=== PATIENT | male | born 1960 | race Caucasian/White ===

== ENCOUNTER 2019-11-29 14:11 | Observation (INO) | payer OTHER ==
[~2019-11-29] VITALS: Ht 172.7 cm; Wt 98.8 kg
[~2019-11-29 14:11] MED LIST: NO MEDS PER PT
[2019-11-29] MEDS ORDERED: ASPIRIN 81 MG TABLET CHEW ONE (14:37)
--- NOTE | 2019-11-29 14:46 | NUR ---
PT CAME IN CO OF CP THAT STARTED ABOUT AN HOUR AGO WHEN HE WAS WORKING ON HIS CAR. PT DESCRIBED THE PAIN "IT FELT LIKE SOMEONE WAS STRANGLING MY INSIDES AND I COULDNT BREATH". EKG COMPLETE. LABS DRAWN. X RAY TAKEN. PT CONNECTED TO MONITORING EQUIPMENT
[2019-11-29 14:48] LABS: BASOPHILS # (AUTO) 0.01 x10^3/uL (0-0.1); BASOPHILS % (AUTO) 0 % (0-1); EOSINOPHILS # (AUTO) 0.08 x10^3/uL (0-0.4); EOSINOPHILS % (AUTO) 1 % (1-7); LYMPHOCYTES # (AUTO) 1.19 x10^3/uL (1-3.4); LYMPHOCYTES % (AUTO) 18 % (22-44); MD NO; MEAN CORPUSCULAR HEMOGLOBIN 31.3 pg (27.5-34.5); MEAN CORPUSCULAR HGB CONC 33.3 g/dL (33.2-36.2); MEAN CORPUSCULAR VOLUME 93.8 fL (81-97); MEAN PLATELET VOLUME 8.6 fL (7.4-10.4); MONOCYTES # (AUTO) 0.39 x10^3/uL (0.2-0.8); MONOCYTES % (AUTO) 6 % (2-9); NEUTROPHILS # (AUTO) 4.99 x10^3/uL (1.8-6.8); NEUTROPHILS % (AUTO) 75 % (42-75); PLATELET COUNT 263 x10^3/uL (130-400); RED BLOOD COUNT 5.06 x10^6/uL (4.38-5.82); RED CELL DISTRIBUTION WIDTH 13.5 % (9.4-14.8)
[2019-11-29 14:59] LABS: ALANINE AMINOTRANSFERASE 22 U/L (12-78); ALBUMIN 3.8 g/dL (3.4-5.0); ANION GAP 9 mmol/L (5-15); CHLORIDE 112 mmol/L (98-107); CREATININE 1.33 mg/dL (0.7-1.3)
[2019-11-29] MEDS ORDERED: ASPIRIN 81 MG TABLET CHEW PO ONE (15:00)
[2019-11-29 15:03] LABS: ALKALINE PHOSPHATASE 80 U/L (45-117); BILIRUBIN,TOTAL 0.4 mg/dL (0.2-1.0); TOTAL PROTEIN 7.1 g/dL (6.4-8.2); TROPONIN I < 0.015 ng/mL (0.000-0.045)
--- NOTE | 2019-11-29 15:20 | NUR ---
PT TO BE ADMITTED
[2019-11-29] MEDS ORDERED: DIPHENHYDRAMINE 25 MG CAPSULE PO PRN (16:30)
[2019-11-29] MEDS ORDERED: ONDANSETRON 2MG/ML, 2ML IVPush PRN (16:30)
[2019-11-29] MEDS ORDERED: ENALAPRILAT 1.25 MG/ML, 2ML IVPush PRN (16:30)
[2019-11-29] MEDS ORDERED: ONDANSETRON ODT 4 MG PO PRN (16:30)
[2019-11-29] MEDS ORDERED: ACETAMINOPHEN 325 MG TABLET PO PRN (16:30)
[2019-11-29] MEDS ORDERED: morphine SULFATE 10 MG/ML, 1ML IVPush PRN (16:30)
[2019-11-29] MEDS: SODIUM CHLORIDE 0.9% 1,000 ML IV SCH (16:44)
[2019-11-29 17:00] VITALS: BP 122/77
[2019-11-29 17:14] LABS: TROPONIN I < 0.015 ng/mL (0.000-0.045)
[2019-11-29 18:02] VITALS: BP 122/77
[2019-11-29 21:23] VITALS: BP 117/73
[2019-11-29 22:46] LABS: TROPONIN I < 0.015 ng/mL (0.000-0.045)
[2019-11-30 00:11] VITALS: BP 113/68
[2019-11-30] MEDS: SODIUM CHLORIDE 0.9% 1,000 ML IV SCH (00:16)
[2019-11-30 05:03] LABS: CHLORIDE 114 mmol/L (98-107)
[2019-11-30 05:10] LABS: ANION GAP 5 mmol/L (5-15); CALCIUM 8.4 mg/dL (8.5-10.1); CREATININE 0.88 mg/dL (0.7-1.3)
[2019-11-30 05:11] LABS: CHOL/HDL RATIO 3.9; CHOLESTEROL, TOTAL 153 mg/dL (140-239); HDL CHOL % 25 % (26-37); HDL CHOLESTEROL (DIRECT) 39 mg/dL (40-60); LDL CHOLESTEROL,CALCULATED 96 mg/dL (54-169); LDL/HDL RATIO 2.5 (0.5-3.0); TRIGLYCERIDES 88 mg/dL (50-200); VLDL CHOLESTEROL 18 mg/dL (0-25)
[2019-11-30 07:17] VITALS: BP 121/75
[2019-11-30] MEDS ORDERED: REGADENOSON 0.4 MG/5 ML SYRINGE ONE (08:16)
[2019-11-30 12:51] VITALS: BP 118/74
== END 2019-11-30 13:56 | disposition home or self-care (01) ==
LOC: ED 15:09 → 5SO 16:28
PROVIDERS: ADMIT Hospitalist; ATTEND Hospitalist
DX: K22.4 Dyskinesia of esophagus (principal); R07.89 Other chest pain; G89.29 Other chronic pain; M54.9 Dorsalgia, unspecified; N17.0 Acute kidney failure with tubular necrosis; I20.9 Angina pectoris, unspecified; R06.02 Shortness of breath; J98.11 Atelectasis
CPT/HCPCS: 36415; 71045; 78452; 80048; 80053; 80061; 84484; 85025; 93005; 93017; 96360; 96361; 99285; A9502; G0378; J2785; J7030

== ENCOUNTER → 2020-11-28 | Outpatient (CLI) | payer MEDICAID, OTHER ==
[~2020-11-28] MED LIST changes: +ACET-2065 PO; +GABA600T7 PO
[2020-11-28 15:15] LABS: MICROSCOPIC NOT IND
[2020-11-28 15:19] LABS: ALANINE AMINOTRANSFERASE 22 U/L (12-78); ALBUMIN 3.7 g/dL (3.4-5.0); ANION GAP 8 mmol/L (5-15); BASOPHILS % (AUTO) 1 % (0-1); CALCIUM 8.8 mg/dL (8.5-10.1); CHLORIDE 106 mmol/L (98-107); CREATININE 0.88 mg/dL (0.7-1.3); EOSINOPHILS % (AUTO) 2 % (1-7); LYMPHOCYTES % (AUTO) 24 % (22-44); MEAN CORPUSCULAR HEMOGLOBIN 31.5 pg (27.5-34.5); MEAN CORPUSCULAR HGB CONC 33.8 g/dL (33.2-36.2); MEAN PLATELET VOLUME 8.6 fL (7.4-10.4); MONOCYTES % (AUTO) 10 % (2-9); NEUTROPHILS % (AUTO) 64 % (42-75); PLATELET COUNT 238 x10^3/uL (130-400); RED BLOOD COUNT 4.77 x10^6/uL (4.38-5.82); RED CELL DISTRIBUTION WIDTH 14.1 % (9.4-14.8)
[2020-11-28 15:21] LABS: ALKALINE PHOSPHATASE 71 U/L (45-117); BILIRUBIN,TOTAL 0.4 mg/dL (0.2-1.0)
[2020-11-28 15:30] LABS: INTERNATIONAL NORMALIZED RATIO 1.03 (0.93-1.1)
== END | disposition home or self-care (01) ==
LOC: STAR 14:11
PROVIDERS: ATTEND Neurological Surgery
DX: Z01.818 Encounter for other preprocedural examination (principal); M47.12 Other spondylosis with myelopathy, cervical region
CPT/HCPCS: 36415; 80053; 81003; 85025; 85610; 85730; 93005

== ENCOUNTER 2020-12-08 09:40 | Inpatient (IN) | payer MEDICAID, OTHER ==
[~2020-12-08] VITALS: Ht 172.7 cm; Wt 95.4 kg
[~2020-12-08 09:40] MED LIST changes: +BUPIVACAINE/PF 0.5% ONE; +CEFAZOLIN 1,000 MG ONE; +EPINEPHRINE 1 MG/ML, 1ML ONE; +FENTANYL PF 250 MCG/5ML ONE; +MIDAZOLAM 1 MG/ML, 2ML ONE
[2020-12-08 10:17] VITALS: BP 125/83
[2020-12-08] MEDS ORDERED: TIZA4TAB2 PO (10:20)
[2020-12-08] MEDS ORDERED: CHLORHEXIDINE 15 ML UDC PO ONE (10:30)
[2020-12-08] MEDS ORDERED: LACTATED RINGERS 1,000 ML IV SCH (10:30)
[2020-12-08] MEDS ORDERED: BUPIVACAINE/PF-EPI 0.5% 1:200K INFIL ONE (13:13)
[2020-12-08] MEDS ORDERED: ONDANSETRON 2MG/ML, 2ML IVPush PRN (14:00)
[2020-12-08] MEDS ORDERED: MEPERIDINE/PF 25MG/0.5ML IVPush PRN (14:00)
[2020-12-08] MEDS ORDERED: OXYcodone 5 MG/5 ML ORAL.SOL UDC PO PRN (14:00)
[2020-12-08] MEDS ORDERED: HYDROmorphone 1 MG/ML, 1ML INJ IV PRN (14:00)
[2020-12-08] MEDS ORDERED: DIAZEPAM 5 MG/ML, 2ML IV PRN ×2 (14:00)
[2020-12-08] MEDS ORDERED: FENTANYL PF 100 MCG/2ML IV PRN (14:00)
[2020-12-08] MEDS ORDERED: PROMETHAZINE 25 MG/ML, 1ML IV PRN (14:00)
[2020-12-08] MEDS ORDERED: hydrALAzine 20 MG/ML, 1ML IV PRN (14:00)
[2020-12-08] MEDS ORDERED: KETOROLAC 30 MG/1 ML IV PRN (14:00)
[2020-12-08] MEDS ORDERED: ALBUTEROL SULFATE 2.5 MG/3 ML NPPB PRN (14:00)
[2020-12-08] MEDS ORDERED: METOCLOPRAMIDE 5 MG/ML, 2ML IV PRN (14:00)
[2020-12-08] MEDS ORDERED: LABETALOL 5MG/ML, 20ML IV PRN ×2 (14:00→17:00)
[2020-12-08] MEDS ORDERED: ACETAMINOPHEN 650 MG/20.3 ML UDC ONE (14:46)
[2020-12-08] MEDS ORDERED: ACETAMINOPHEN 325 MG TABLET PO PRN (15:00)
[2020-12-08] MEDS ORDERED: morphine SULFATE 10 MG/ML, 1ML IV PRN (17:00)
[2020-12-08] MEDS ORDERED: DIPHENHYDRAMINE 25 MG CAPSULE PO PRN (17:00)
[2020-12-08] MEDS ORDERED: BISACODYL 10 MG SUPP PR PRN (17:00)
[2020-12-08] MEDS ORDERED: TIZANIDINE 4MG TABLET PO PRN (17:00)
[2020-12-08] MEDS ORDERED: MAGNESIUM HYDROXIDE 8%, 30ML UDC PO PRN (17:00)
[2020-12-08] MEDS ORDERED: DIPHENHYDRAMINE 50 MG/ML, 1ML IM PRN (17:00)
[2020-12-08] MEDS ORDERED: HYDROcodone/APAP 5/325 TABLET PO PRN (17:00)
[2020-12-08] MEDS ORDERED: ONDANSETRON 2MG/ML, 2ML IV PRN (17:00)
[2020-12-08] MEDS ORDERED: PROMETHAZINE 25 MG/ML, 1ML IM PRN (17:00)
[2020-12-08] MEDS ORDERED: DIPHENHYDRAMINE 50 MG/ML, 1ML IVPush PRN (17:00)
[2020-12-08] MEDS ORDERED: OXYcodone IR 5MG TABLET PO PRN (17:00)
[2020-12-08 18:31] VITALS: BP 150/102
[2020-12-08] MEDS: NS + 20MEQ KCL 1,000 ML IV SCH (19:57)
[2020-12-08] MEDS: CEFAZOLIN PMX 1GM/50ML 50 ML IVPB SCH (20:17)
[2020-12-09 00:37] VITALS: BP 98/62
[2020-12-09] MEDS: NS + 20MEQ KCL 1,000 ML IV SCH (03:00)
[2020-12-09] MEDS: CEFAZOLIN PMX 1GM/50ML 50 ML IVPB SCH (04:42)
[2020-12-09 05:07] VITALS: BP 136/88
[2020-12-09 08:10] VITALS: BP 132/77
[2020-12-09] MEDS ORDERED: SENNA/DOCUSATE TABLET PO SCH (09:00)
[2020-12-09] MEDS ORDERED: GABAPENTIN 300 MG CAPSULE PO SCH (09:00)
[2020-12-09] MEDS ORDERED: GUAIFENESIN 200 MG TABLET PO ONE (11:00)
[2020-12-09] MEDS ORDERED: SENN1TAB94 PO (11:58)
[2020-12-09] MEDS ORDERED: HYDR-2214 PO (11:59)
[2020-12-09] MEDS ORDERED: MAGN400O7 PO (12:01)
== END 2020-12-09 13:23 | disposition home or self-care (01) | DRG 473 ==
LOC: OUT 09:40 → 4NE 15:33 → OUT 21:58
PROVIDERS: ADMIT Neurological Surgery; ATTEND Neurological Surgery
PROC: 4A11X4G Monitoring of Peripheral Nervous Electrical Activity, Intraoperative, External Approach (ICD-10-PCS; 2020-12-08)
PROC: 0RG10A0 Fusion of Cervical Vertebral Joint with Interbody Fusion Device, Anterior Approach, Anterior Column, Open Approach (ICD-10-PCS; principal; 2020-12-08 12:00)
DX: M47.12 Other spondylosis with myelopathy, cervical region (principal); M48.02 Spinal stenosis, cervical region
CPT/HCPCS: 36415; 72040; S0020; 86850; 86900; C1713; C1776; G0378; J0171; J0690; J2250; J3010; J3480; C1762; J7120